=== PATIENT | female | born 1960 | race Hispanic/Latino ===

== ENCOUNTER 2017-10-08 16:33 | Emergency (ER) | payer BC, OTHER ==
[2017-10-08 16:34] VITALS: BMI 29.1
--- NOTE | 2017-10-08 17:04 | ED PDOC ---
Arrival/HPI - General Chief Complaint: Abdominal Pain Time Seen by Provider: 10/08/17 17:04 Historian: Patient - History of Present Illness Narrative History of Present Illness (Text): 10/08/17 17:04 This 57 yo female with pmh dm, htn, presents to this ED c/o left sided chest pain x 2 weeks. Patient stated pain is constant, but sometimes is mild and other times is worse. Patient stated patient started after she was painting his house. Patient is pointing just under left breast area, on her rib. Patient denies recent trauma, sob, adams, or abnormal gait. Time/Duration: Other (see hpi) Context: Home Past Medical History - Provider Review Nursing Documentation Reviewed: Yes - Infectious Disease Hx of Infectious Diseases: None - Tetanus Immunization Tetanus Immunization: Unknown - Reproductive Menopause: Yes - Cardiac Hx Hypertension: Yes - Pulmonary Hx Respiratory Disorders: No - Neurological Hx Neurological Disorder: No - HEENT Hx HEENT Disorder: No - Renal Hx Renal Disorder: No - Endocrine/Metabolic Hx Endocrine Disorders: Yes Hx Diabetes Mellitus Type 1: Yes Hx Hypothyroidism: Yes - Hematological/Oncological Hx Blood Disorders: No - Integumentary Hx Dermatological Disorder: No - Musculoskeletal/Rheumatological Hx Musculoskeletal Disorders: No - Gastrointestinal Hx Gastrointestinal Disorders: No - Genitourinary/Gynecological Hx Genitourinary Disorders: No - Psychiatric Hx Psychophysiologic Disorder: No Hx Depression: No Hx Emotional Abuse: No Hx Physical Abuse: No Hx Substance Use: No - Surgical History Hx Cholecystectomy: Yes Hx Hysterectomy: Yes - Anesthesia Hx Anesthesia: Yes Hx Anesthesia Reactions: No Hx Malignant Hyperthermia: No - Suicidal Assessment Feels Threatened In Home Enviroment: No Family/Social History - Physician Review Nursing Documentation Reviewed: Yes Family/Social History: Other (noncontributory) Smoking Status: Never Smoked Hx Alcohol Use: No Hx Substance Use: No Hx Substance Use Treatment: No Allergies/Home Meds Allergies/Adverse Reactions: Allergies No Known Allergies Allergy (Verified 02/02/13 14:08) Home Medications: Home Meds Medication Instructions Recorded Confirmed Levothyroxine [Synthroid] 0.112 mg PO DAILY 02/02/13 10/08/17 Lisinopril/Hydrochlorothiazide 1 tab PO DAILY 02/02/13 10/08/17 [Lisinopril-Hctz 20-12.5 mg Tab] Sitagliptin Phos/Metformin HCl 1 ter PO DAILY 02/02/13 10/08/17 [Janumet Xr 100-1,000 mg Tablet] Review of Systems - Review of Systems Constitutional: Normal. absent: Fatigue, Weight Change, Fevers, Night Sweats Eyes: Normal ENT: Normal Respiratory: Normal Cardiovascular: Chest Pain Gastrointestinal: Abdominal Pain (LUQ pain). absent: Constipation, Diarrhea, Nausea, Vomiting Genitourinary Female: Normal Musculoskeletal: Normal Skin: Normal Neurological: Normal Endocrine: Normal Hemo/Lymphatic: Normal Psychiatric: Normal Physical Exam Vital Signs Temp Pulse Resp BP Pulse Ox 10/08/17 20:20 98.2 F 82 16 170/90 H 98 10/08/17 18:34 88 18 168/88 H 98 10/08/17 16:57 98.5 F 92 H 18 173/103 H 99 Temperature: Afebrile Blood Pressure: Normal Pulse: Regular Respiratory Rate: Normal Appearance: Positive for: Well-Appearing, Non-Toxic, Comfortable Pain Distress: None Mental Status: Positive for: Alert and Oriented X 3 - Systems Exam Head: Present: Atraumatic, Normocephalic Pupils: Present: PERRL Extroacular Muscles: Present: EOMI Conjunctiva: Present: Normal Mouth: Present: Moist Mucous Membranes Neck: Present: Normal Range of Motion Respiratory/Chest: Present: Clear to Auscultation, Good Air Exchange, Other (No skin rash). No: Respiratory Distress, Accessory Muscle Use, Wheezes, Decreased Breath Sounds, Rales, Retracting, Rhonchi, Tachypneic, Tender to Palpation Cardiovascular: Present: Regular Rate and Rhythm, Normal S1, S2. No: Murmurs Abdomen: No: Tenderness, Distention, Peritoneal Signs Back: Present: Normal Inspection Upper Extremity: Present: Normal Inspection. No: Cyanosis, Edema Lower Extremity: Present: Normal Inspection. No: Edema Neurological: Present: GCS=15, CN II-XII Intact, Speech Normal Skin: Present: Warm, Dry, Normal Color. No: Rashes Psychiatric: Present: Alert, Oriented x 3, Normal Insight, Normal Concentration Medical Decision Making ED Course and Treatment: 10/08/17 19:27 Re-evaluation. Patient feels better. Discussed results and plan with patient who expresses understanding. All questions answered and there is agreement with the plan to discharge home with instructions. Patient stable for discharge. Return if symptoms persist or worsen. 10/11/17 14:32 I spoke with patient regarding urine culture result. She asked me to send prescription to [facility], which I transmitted electronically. Patient will get medication in one hour. Re-evaluation Time: 19:27 Reassessment Condition: Re-examined, Improved - Lab Interpretations Microbiology Results: Microbiology Results 10/08/17 17:23 Urine Urine Culture - Final Escherichia Coli Lab Results: 10/08/17 17:23 10/08/17 17:23 Lab Results 10/08/17 17:23: Urine Color Yellow, Urine Appearance Clear, Urine pH 6.0, Ur Specific Daisy >= 1.030, Urine Protein Trace H, Urine Glucose (UA) >=1000, Urine Ketones Negative, Urine Blood Moderate H, Urine Nitrate Negative, Urine Bilirubin Negative, Urine Urobilinogen 0.2, Ur Leukocyte Esterase Negative, Urine RBC 0 - 2, Urine WBC 5 - 10, Ur Epithelial Cells 4 - 5, Urine Bacteria Small 10/08/17 17:23: Sodium 137, Potassium 3.8, Chloride 102, Carbon Dioxide 23, Anion Gap 16, BUN 12, Creatinine 0.4 L, Est GFR ( Amer) > 60, Est GFR ( Non-Af Amer) > 60, Random Glucose 346 H*, Calcium 9.9, Magnesium 1.7, Total Bilirubin 0.6, AST 71 H, ALT 108 H, Alkaline Phosphatase 175 H, Lactate Dehydrogenase 493, Total Creatine Kinase 50, Troponin I < 0.01, NT-Pro-B Natriuret Pep 37.0, Total Protein 7.9, Albumin 4.4, Globulin 3.5, Albumin/ Globulin Ratio 1.3 10/08/17 17:23: PT 10.2, INR 0.90, APTT 27.7, D-Dimer, Quantitative < 200 10/08/17 17:23: WBC 9.6, RBC 4.54, Hgb 13.9, Hct 39.3, MCV 86.6, MCH 30.6, MCHC 35.4, RDW 12.5, Plt Count 327, MPV 9.5, Gran % 54.4, Lymph % (Auto) 37.9 H, Haakon % (Auto) 6.0, Eos % (Auto) 1.2 L, Baso % (Auto) 0.5, Gran # 5.23, Lymph # ( Auto) 3.7 H, Haakon # (Auto) 0.6, Eos # (Auto) 0.1, Baso # (Auto) 0.05 10/08/17 17:20: POC Glucose (mg/dL) 330 H I have reviewed the lab results: Yes Interpretation: No clinic. lab abnormalty - RAD Interpretation Narrative RAD Interpretations (Text): 10/08/17 19:20 EXAM: CT Abdomen and Pelvis Without Intravenous Contrast FINDINGS: Lung bases: Unremarkable. No mass. No consolidation. ABDOMEN: Liver: Mild fatty changes in the liver. Gallbladder and bile ducts: Unremarkable. No calcified stones. No ductal dilation. Pancreas: Unremarkable. No ductal dilation. Spleen: 2.8 cm cyst in the spleen. Adrenals: Unremarkable. No mass. Kidneys and ureters: No hydronephrosis or hydroureter or evidence of obstructive nephrolithiasis. 1.5 cm isodense lesion in left kidney likely a cyst. Stomach and bowel: Moderate to large amount of stool in the colon. No areas of bowel wall thickening. No evidence of obstruction. No pericolonic inflammatory changes to suggest acute diverticulitis. PELVIS: Appendix: Normal appendix seen. Bladder: Unremarkable. No stones. Reproductive: Unremarkable as visualized. ABDOMEN and PELVIS: Intraperitoneal space: Unremarkable. No free air. No significant fluid collection. Bones/joints: No acute fracture. No dislocation. Soft tissues: Unremarkable. Vasculature: Unremarkable. No abdominal aortic aneurysm. Lymph nodes: Unremarkable. No enlarged lymph nodes. IMPRESSION: 1. No hydronephrosis or hydroureter or evidence of obstructive nephrolithiasis. 2. Moderate to large amount of stool in the colon. No areas of bowel wall thickening. No evidence of obstruction. 3. Mild fatty changes in the liver. 4. 1.5 cm isodense lesion in left kidney likely a cyst. Recommend followup and further workup with multiphase contrast-enhanced abdominal CT or MRI Radiology Orders: 10/08/17 17:15 CHEST PORTABLE [RAD] Stat 10/08/17 17:23 ABDOMEN & PELVIS [ABD & PELVIS W/O PO OR IV CONT] [CT] Stat - EKG Interpretation Interpreted by ED Physician: Yes (NSR [address] changes) Type: 12 lead EKG - Medication Orders Current Medication Orders: Discontinued Medications Cephalexin Monohydrate (Keflex) 500 mg PO STAT STA PRN Reason: Protocol Stop: 10/08/17 19:28 Last Admin: 10/08/17 19:56 Dose: 500 mg Sodium Chloride (Sodium Chloride 0.9%) 1,000 mls @ 999 mls/hr IV .Q1H1M STA Stop: 10/08/17 19:21 Last Admin: 10/08/17 18:40 Dose: 999 mls/hr eMAR Start Stop Document 10/08/17 18:40 ONEIDA (Rec: 10/08/17 18:40 EWO [id number]) Intravenous Solution Start Date 10/08/17 Start Time 18:40 End Date 10/08/17 End time 19:40 Total Infusion Time 60 Disposition/Present on Arrival - Present on Arrival Any Indicators Present on Arrival: No History of DVT/PE: No History of Uncontrolled Diabetes: No Urinary Catheter: No History of Decub. Ulcer: No History Surgical Site Infection Following: None - Disposition Have Diagnosis and Disposition been Completed?: Yes Diagnosis: Chest wall pain, Kidney cysts Disposition: HOME/ ROUTINE Disposition Time: 19:34 Patient Plan: Discharge Condition: IMPROVED Discharge Instructions (ExitCare): Costochondritis (DC) Additional Instructions: Call private doctor for follow up visit in 1-2 days. Take medication as instructed. return to emergency if symptoms worsen. Make sure to tell your doctor regarding kidney cyst, and that you need outpatient MRI or CT scan of your kidney. Prescriptions: Cephalexin [cephalexin] 500 mg PO BID #14 cap Famotidine [Pepcid] 40 mg PO DAILY #10 tablet Ibuprofen [Motrin] 400 mg PO Q8H PRN #15 tab PRN Reason: Pain, Severe (8-10) Referrals: Daiana Higgins DO [Primary Care Provider] - Follow up with primary Forms: [employer] ([place])
[2017-10-08 17:46] LABS: ALB/GLOB RATIO 1.3 (1.1-1.8); ALBUMIN 4.4 g/dL (3.0-4.8); ALT/SGPT 108 U/L (7-56); AST/SGOT 71 U/L (14-36); BLOOD UREA NITROGEN 12 mg/dL (7-21); CALCIUM 9.9 mg/dL (8.4-10.5); GFR AFRICAN-AMERICAN > 60; GFR NON-AFRICAN AMERICAN > 60
[2017-10-08 17:48] LABS: BASO # 0.05 K/mm3 (0.0-2.0); BASO % 0.5 % (0.0-3.0); EOS # 0.1 (0.0-0.7); EOS % 1.2 % (1.5-5.0); GRAN # 5.23 (1.4-6.5); GRAN % 54.4 % (50.0-68.0); HEMOGLOBIN 13.9 g/dL (12.0-16.0); LYMPH # 3.7 (1.2-3.4); LYMPH % 37.9 % (22.0-35.0); MEAN CELL VOLUME 86.6 fl (80.0-105.0); MEAN CORPUSCULAR HEMOGLOBIN 30.6 pg (25.0-35.0); MEAN CORPUSCULAR HGB CONC 35.4 g/dl (31.0-37.0); MEAN PLATELET VOLUME 9.5 fl (7.0-11.0); MONO # 0.6 (0.1-0.6); RBC 4.54 10^6/uL (3.5-6.1); RED CELL DISTRIBUTION WIDTH 12.5 % (11.5-14.5); WHITE BLOOD COUNT 9.6 10^3/ul (4.5-11.0)
[2017-10-08 17:50] LABS: TROPONIN I < 0.01 ng/mL
[2017-10-08 18:03] LABS: URINE BILIRUBIN NEGATIVE (NEGATIVE); URINE BLOOD MODERATE (NEGATIVE); URINE GLUCOSE (UA) >=1000 mg/dL (NEGATIVE); URINE LEUKOCYTE ESTERASE NEGATIVE Leu/uL (NEGATIVE); URINE PROTEIN TRACE mg/dL (<30 mg/dL); URINE UROBILINOGEN 0.2 E.U./dL (<1 E.U./dL)
[2017-10-08 18:04] LABS: URINE APPEARANCE CLEAR (CLEAR); URINE COLOR YELLOW (YELLOW)
[2017-10-08 18:12] LABS: URINE BACTERIA SMALL (NEG); URINE RBC 0 - 2 /hpf (0-2)
[2017-10-08 18:15] LABS: D DIMER < 200 ng/mlDDU (0-243); PARTIAL THROMBOPLASTIN TIME 27.7 Seconds (25.1-36.5); PROTHROMBIN TIME 10.2 SECONDS (9.4-12.5)
[2017-10-08] MEDS ORDERED: Sodium Chloride 0.9% 1,000 ML IV STA (18:21)
[2017-10-08 18:44] VITALS: O2SAT 98
[2017-10-08 20:22] VITALS: BP 170/90; PULSE 82; RESP 16; TEMP 98.2
--- NOTE | 2017-10-09 08:53 | CARD ---
APPROVED REPORT Date of service: 10/08/2017 EKG Measurement Heart [id number] <Conclusion> Normal sinus rhythm Minimal voltage criteria for LVH, may be normal variant Borderline ECG
--- NOTE | 2017-10-09 09:17 | CT ---
Date of service: 10/08/2017 PROCEDURE: CT Abdomen and Pelvis without intravenous contrast HISTORY: left flank pain COMPARISON: None. TECHNIQUE: Without contrast.. Contrast dose: Radiation dose: Total exam DLP = 477 mGy-cm. This CT exam was performed using one or more of the following dose reduction techniques: Automated exposure control, adjustment of the mA and/or kV according to patient size, and/or use of iterative reconstruction technique. FINDINGS: LOWER THORAX: Unremarkable. LIVER: Unremarkable. No gross lesion or ductal dilatation. Mild fatty infiltration of the liver GALLBLADDER AND BILE DUCTS: Gallbladder removed PANCREAS: Unremarkable. No gross lesion or ductal dilatation. SPLEEN: Unremarkable. ADRENALS: Unremarkable. No mass. KIDNEYS AND URETERS: Unremarkable. No hydronephrosis. No solid mass. VASCULATURE: Unremarkable. No aortic aneurysm. BOWEL: Unremarkable. No obstruction. No gross mural thickening. APPENDIX: Unremarkable. Normal appendix. PERITONEUM: Unremarkable. No free fluid. No free air. LYMPH NODES: Unremarkable. No enlarged lymph nodes. BLADDER: Unremarkable. REPRODUCTIVE: Unremarkable. BONES: No acute fracture. OTHER FINDINGS: The report concurs with the preliminary [facility] report IMPRESSION: No acute intra-abdominal findings. No evidence of urolithiasis
--- NOTE | 2017-10-09 10:35 | RAD ---
Date of service: 10/08/2017 HISTORY: Chest pain. COMPARISON: 03/24/2013. FINDINGS: LUNGS: No active pulmonary disease. PLEURA: No significant pleural effusion identified, no pneumothorax apparent. CARDIOVASCULAR: No radiographic findings to suggest acute or significant cardiovascular disease. OSSEOUS STRUCTURES: No significant abnormalities. VISUALIZED UPPER ABDOMEN: Normal. OTHER FINDINGS: None. IMPRESSION: No active disease. No significant interval change compared to the prior examination(s).
== END 2017-10-08 20:22 | disposition home or self-care (01) ==
LOC: ED 16:33
DX: R07.89 Other chest pain (principal); N28.1 Cyst of kidney, acquired; I10 Essential (primary) hypertension; E11.9 Type 2 diabetes mellitus without complications
CPT/HCPCS: 71045; 74176; 80053; 81001; 82550; 82948; 83615; 83735; 83880; 84484; 85025; 85378; 85610; 85730; 87086; 87181; 93005; 96360; 99283; J7030

== ENCOUNTER 2018-07-26 13:17 | Emergency (ER) | payer BC ==
[2018-07-26 13:21] VITALS: BMI 24.6
[2018-07-26] MEDS ORDERED: Sodium Chloride 0.9% 1,000 ML IV SCH (13:45)
--- NOTE | 2018-07-26 13:58 | ED PDOC ---
Arrival/HPI - General Chief Complaint: Syncope Time Seen by Provider: 07/26/18 13:22 Historian: Patient - History of Present Illness Narrative History of Present Illness (Text): 07/26/18 13:50 Pt is a 58 yo female with a PMH of DM, HTN, hypothyroid, HLD, "pinched nerve" who presented to the ED due to light headedness. 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 She started to experience blurry vision. Pt went to the school nurse who took her BP at 80/xx and sent her to the ED. In the ambulance pt states her BP was 57/28. Pt reports taking her lisinopril in the morning and amlodipine at night. The amlodipine was added about 3 months ago by her PMD. Time/Duration: Prior to Arrival Symptom Onset: Sudden Symptom Course: Improving Severity Level: 4 Activities at Onset: Rest Context: Sitting Past Medical History - Infectious Disease Hx of Infectious Diseases: None - Tetanus Immunization Tetanus Immunization: Unknown - Cardiac Hx Hypertension: Yes - Pulmonary Hx Respiratory Disorders: No - Neurological Hx Neurological Disorder: No - HEENT Hx HEENT Disorder: No - Renal Hx Renal Disorder: No - Endocrine/Metabolic Hx Endocrine Disorders: Yes Hx Diabetes Mellitus Type 1: Yes Hx Hypothyroidism: Yes - Hematological/Oncological Hx Blood Disorders: No - Integumentary Hx Dermatological Disorder: No - Musculoskeletal/Rheumatological Hx Musculoskeletal Disorders: No - Gastrointestinal Hx Gastrointestinal Disorders: No - Genitourinary/Gynecological Hx Genitourinary Disorders: No - Psychiatric Hx Psychophysiologic Disorder: No Hx Depression: No Hx Emotional Abuse: No Hx Physical Abuse: No Hx Substance Use: No - Surgical History Hx Cholecystectomy: Yes Hx Hysterectomy: Yes - Anesthesia Hx Anesthesia: Yes Hx Anesthesia Reactions: No Hx Malignant Hyperthermia: No - Suicidal Assessment Feels Threatened In Home Enviroment: No Family/Social History Family/Social History: Diabetes, Hypertension, CAD/PA Smoking Status: Never Smoked Hx Alcohol Use: No Hx Substance Use: No Hx Substance Use Treatment: No Allergies/Home Meds Allergies/Adverse Reactions: Allergies No Known Allergies Allergy (Verified 02/02/13 14:08) Home Medications: Home Meds Medication Instructions Recorded Confirmed Levothyroxine [Synthroid] 0.112 mg PO DAILY 02/02/13 10/08/17 Lisinopril/Hydrochlorothiazide 1 tab PO DAILY 02/02/13 10/08/17 [Lisinopril-Hctz 20-12.5 mg Tab] Sitagliptin Phos/Metformin HCl 1 ter PO DAILY 02/02/13 10/08/17 [Janumet Xr 100-1,000 mg Tablet] Review of Systems - Review of Systems Constitutional: Normal Eyes: Vision Changes ENT: Normal Respiratory: Normal Cardiovascular: Normal Gastrointestinal: Normal Genitourinary Female: Normal Musculoskeletal: Normal Skin: Normal Neurological: Dizziness Endocrine: Normal Hemo/Lymphatic: Normal Psychiatric: Normal Physical Exam Vital Signs Reviewed: Yes Vital Signs Temp Pulse Resp BP Pulse Ox 07/26/18 13:26 98.7 F 100 H 19 118/70 100 Temperature: Afebrile Blood Pressure: Normal Pulse: Regular Respiratory Rate: Normal Appearance: Positive for: Well-Appearing Mental Status: Positive for: Alert and Oriented X 3 Finger Stick Blood Glucose: 77 - Systems Exam Head: Present: Atraumatic, Normocephalic Pupils: Present: PERRL Extroacular Muscles: Present: EOMI Mouth: Present: Moist Mucous Membranes Neck: Present: Normal Range of Motion Respiratory/Chest: Present: Clear to Auscultation, Good Air Exchange. No: Respiratory Distress, Accessory Muscle Use Cardiovascular: Present: Regular Rate and Rhythm Abdomen: Present: Normal Bowel Sounds. No: Tenderness, Distention Upper Extremity: Present: Normal Inspection Lower Extremity: Present: Normal Inspection Neurological: Present: GCS=15, CN II-XII Intact Skin: Present: Warm, Dry, Normal Color Psychiatric: Present: Alert, Oriented x 3 Medical Decision Making ED Course and Treatment: 07/26/18 14:05 1L NS bolus EKG orthostatic vital signs 07/26/18 16:45 pt is feeling better advised to follow up with PMD Pt seen, examined, assessment and plan discussed with Dr Marvel Alves PGY1 - Medication Orders Current Medication Orders: Sodium Chloride (Sodium Chloride 0.9%) 1,000 mls @ 100 mls/hr IV .Q10H OSCAR - PA / [employer] / Resident Statement / has reviewed & agrees with the documentation as recorded. BARNEY has examined the patient and agrees with the treatment plan. Disposition/Present on Arrival - Present on Arrival Any Indicators Present on Arrival: No History of DVT/PE: No History of Uncontrolled Diabetes: No Urinary Catheter: No History of Decub. Ulcer: No History Surgical Site Infection Following: None - Disposition Have Diagnosis and Disposition been Completed?: Yes Diagnosis: Hypotension Disposition: HOME/ ROUTINE Disposition Time: 16:46 Patient Plan: Discharge Patient Problems: Current Active Problems Problem Status Onset Hypotension Acute Condition: GOOD Discharge Instructions (ExitCare): Low Blood Pressure (DC) Forms: [employer] (Chinese)
[2018-07-26 15:25] VITALS: RESP 17; O2SAT 99
[2018-07-26 17:23] VITALS: BP 125/71; PULSE 98; TEMP 98.1
--- NOTE | 2018-07-26 19:38 | CARD ---
APPROVED REPORT Date of service: 07/26/2018 EKG Measurement Heart [id number] <Conclusion> Normal sinus rhythm Normal ECG
== END 2018-07-26 17:28 | disposition home or self-care (01) ==
LOC: ED 13:17
DX: I95.9 Hypotension, unspecified (principal); Z82.49 Family history of ischemic heart disease and other diseases of the circulatory system
CPT/HCPCS: 93005; 99285; J7030